=== PATIENT | female | born 1995 | race Caucasian/White ===

== ENCOUNTER 2016-11-19 13:34 | Emergency (ER) | payer OTHER ==
[~2016-11-19] VITALS: Ht 162.6 cm; Wt 101.6 kg
[2016-11-19 14:46] VITALS: BP 135/75
== END 2016-11-19 14:46 | disposition home or self-care (01) ==
LOC: ED 13:34
DX: S63.501A Unspecified sprain of right wrist, initial encounter (principal); X50.0XXA Overexertion from strenuous movement or load, initial encounter; Y93.02 Activity, running; Y92.89 Other specified places as the place of occurrence of the external cause; Y99.8 Other external cause status
CPT/HCPCS: Q0092

== ENCOUNTER 2018-11-29 01:39 | Emergency (ER) | payer OTHER ==
[~2018-11-29] VITALS: Ht 160 cm; Wt 113.5 kg
[2018-11-29 01:45] VITALS: Ht 160 cm; Wt 113.5 kg
[2018-11-29 02:33] LABS: BASOPHIL % 0.4 % (0-2); PLATELET COUNT 224 x10^3mcL (130-400)
[2018-11-29 02:35] LABS: RED CELL DISTRIBUTION WIDTH 16.1 % (11.5-14.5)
[2018-11-29 03:09] LABS: UA SPECIFIC GRAVITY 1.015 (1.005-1.035); microscopic required? YES
[2018-11-29 03:10] LABS: urine erythrocyte NEGATIVE (NEGATIVE)
[2018-11-29 04:13] VITALS: BP 116/55
== END 2018-11-29 04:13 | disposition home or self-care (01) ==
LOC: ED 01:39
PROVIDERS: Emergency Medicine
DX: O20.0 Threatened abortion (principal); Z3A.12 12 weeks gestation of pregnancy
CPT/HCPCS: 36415